=== PATIENT | male | born 1955 | race Caucasian/White ===

== ENCOUNTER 2020-02-18 01:34 | Outpatient (CLI) | payer MEDICARE, SELFPAY ==
[2020-02-18 08:49] LABS: Calculated LDL 171 mg/dL (<100); Cholesterol 230 mg/dL (<200); HDL Cholesterol 34 mg/dL (40-60); Triglyceride 128 mg/dL (<150)
[2020-02-18 08:57] LABS: Hemoglobin A1C 5.1 % (3.8-5.6)
[2020-02-19 09:18] LABS: PSA, Screening 1.8 ng/mL (0.0-4.5)
== END 2020-02-18 01:54 ==
PROVIDERS: PCP Nurse Practitioner; Visit Provider Nurse Practitioner
DX: E11.9 Type 2 diabetes mellitus without complications (principal); R97.20 Elevated prostate specific antigen [PSA]; Z80.42 Family history of malignant neoplasm of prostate; Z12.5 Encounter for screening for malignant neoplasm of prostate
CPT/HCPCS: 36415; 80061; 84153; 83036

== ENCOUNTER 2020-06-06 07:32 | Outpatient (CLI) | payer MEDICARE, SELFPAY ==
[2020-06-08 21:29] LABS: Patient Race White; SARS-CoV-2 RNA Undetected (Undetected); SARS-CoV-2 Specimen Source Nasal
== END 2020-06-06 07:52 ==
PROVIDERS: PCP Nurse Practitioner; Visit Provider Nurse Practitioner
DX: Z11.59 Encounter for screening for other viral diseases (principal)
CPT/HCPCS: U0003

== ENCOUNTER → 2021-08-16 17:41 | Outpatient (CLI) | payer MEDICARE, SELFPAY ==
--- NOTE | 2021-08-16 | DI.RAD_ITS ---
Exam(s) XR LUMBAR SPINE FLEX/EXT ONLY EXAM: XR LUMBAR SPINE FLEX/EXT ONLY CLINICAL HISTORY: RLE WEAKNESS, R28.898, ? LISTHESIS AT L3-4 TECHNIQUE: COMPARISON: No exams were available for comparison FINDINGS: Four views were obtained including flexion and extension lateral views. There are Holt rods in place at the L 4 and L5 levels. These appear well seated in the bone. Flexion and extension views are unremarkable except for mild anterior subluxation of L3 on L4 on flexion view.. There is disc space loss of height at L5-S1. There is also disc space loss of height at L3-4. No other significant bony abnormality seen. IMPRESSION: RADIATION DOSE DELIVERED: Total DLP
== END ==
PROVIDERS: PCP Nurse Practitioner; Visit Provider Neurological Surgery
DX: M43.8X6 Other specified deforming dorsopathies, lumbar region (principal); R29.890 Loss of height; R29.898 Other symptoms and signs involving the musculoskeletal system; G57.81 Other specified mononeuropathies of right lower limb
CPT/HCPCS: 72120